=== PATIENT | male | born 1980 | race Caucasian/White ===

== ENCOUNTER 2021-12-01 10:26 | Day surgery (SDC) | payer BC ==
[~2021-12-01 10:26] MED LIST: Lactated Ringers 1,000 ML IV SCH; Midazolam 1 MG/ML 2 ML SDV ONE; Propofol 200 MG/20 ML SDV ONE; Sodium Chloride 0.9% 10 ML Syringe FLUSH PRN; Sodium Chloride 0.9% 2.5 ML Syringe FLUSH PRN; Sodium Chloride 0.9% 20 ML SDV IV PRN
[2021-12-01] MEDS ORDERED: Ketamine HCL/NACL, ISO-OSM 50 MG/5 ML Syringe ONE (11:15)
[2021-12-01 14:23] VITALS: BP 120/66; PULSE 85
== END 2021-12-01 14:32 | disposition home or self-care (01) ==
LOC: MW.SDS 10:26
PROVIDERS: ATTEND Surgery
DX: K29.30 Chronic superficial gastritis without bleeding (principal); K44.9 Diaphragmatic hernia without obstruction or gangrene; E66.9 Obesity, unspecified; Z88.0 Allergy status to penicillin; Z79.899 Other long term (current) drug therapy; Z98.890 Other specified postprocedural states
CPT/HCPCS: 43239; J2250; J2704; J7120; 00811